=== PATIENT | female | born 1940 | race Caucasian/White ===

== ENCOUNTER → 2016-12-06 | Outpatient (CLI) | payer OTHER ==
--- NOTE | 2016-12-06 19:17 | DX ---
DEXA Bone Mineral Densitometry Screening Clinical Indications: Compression fractures. Worsening scoliosis. Evaluate for possible estrogen def iciency osteoporosis (M 48.56 XA). Previous right hip replacement. Comparison: Baseline evaluation. Technique: Bone Mineral Densitometry (BMD) by Dual Energy X-Ray Absorptiometry (DEXA) was performed utilizing the [email or web address] scanner. The lumbar spine was evaluated in the AP projection. The left hip and left forearm were evaluated in the AP projection. Previous right hip replacement. Vertebral f racture assessment was also performed. AP Lumbar Spine: The L1, L2, L3 and L4 vertebral bodies are evaluated. Bone mineral density is kevon factually increased secondary to endplate sclerosis and scoliosis. Bone marrow density calculation is obtained for future comparison purposes BMD: 1.447 gm/cm2 T-score: 2.0 SD Z-score: 3.9 SD AP Left Hip: BMD: 0.921 gm/cm2 T-score: -0.7 SD Z-score: 1.1 SD AP Left Forearm: BMD: 0.880 gm/cm2 T-score: 0.0 SD Z-score: 2.4 SD Vertebral Fracture Assessment: There is severe scoliosis. No definitive compression fracture is iden tified. The ten year risk for any major osteoporotic fracture is 11.2% and for a hip fracture is 1.0%. Conclusion: Considering the lowest measured site, the patient has bone mineral density within normal limits. Recommendations: 1. Pursue a regular regimen of weight bearing and muscle strengthening exercises. 2. Insure that total daily calcium intake is at least 1500 mg (DIET more important than supplements). 3. Check serum hydroxy vitamin D3 (normal >30ng/ml). 4. Insure daily intake of vitamin D is at least 800-1000 international units. 5. Consider follow-up DEXA scan in 3 - 5 years to assess the rate of bone loss in this patient.
== END ==
LOC: FIMAGING 09:35
PROVIDERS: ATTEND Physical Medicine & Rehabilitation
DX: Z13.820 Encounter for screening for osteoporosis (principal); M48.56XA Collapsed vertebra, not elsewhere classified, lumbar region, initial encounter for fracture; M41.9 Scoliosis, unspecified; Z96.641 Presence of right artificial hip joint